=== PATIENT | male | born 1960 | race Caucasian/White ===

== ENCOUNTER 2023-10-25 11:15 | Outpatient (RCR) | payer MEDICAID, SELFPAY | END 2023-12-06 09:48 | disposition home or self-care (01) | PROVIDERS: PCP Family Medicine; Visit Provider Family Medicine | DX: M54.2 Cervicalgia (principal); G89.29 Other chronic pain; Z51.89 Encounter for other specified aftercare | CPT/HCPCS: 97110; 97140; 97161 ==

== ENCOUNTER 2024-10-18 06:46 | Day surgery (SDC) | payer MEDICAID, SELFPAY ==
[2024-10-18] VITALS (14 sets, daily range): BP systolic 116–151; BP diastolic 65–87; PULSE 57–97; RESP 14–18; TEMP 36.3–36.8; O2SAT 92–98; BMI 30.7
--- NOTE | 2024-10-18 07:26 | P.ANES_ITS ---
Documented by User: Mg Wright MD 10/18/24 11:05 Anesthesia Charges Start Date/Time Anesthesia Start Date: 10/18/24 Stop Date/Time Anesthesia Stop Date: 10/18/24 Anesthesia Stop Time: 10:55 Coding CPT Codes CPT Codes: ANESTH SURG LOWER ABDOMEN - 25181 ([id number]) P2 - PATIENT W/MILD SYST DISEASE, QK - SUPERVISOR SPECIAL EFFECTS 2-4 CNCRNT ANES PROC, QX - ASSEMBLING INSPECTOR SVC W/ MED DIRECTION Documented by User: Blaise Wright APRN, ASSEMBLING INSPECTOR 10/18/24 10:57 Anesthesia Charges Start Date/Time Anesthesia Start Time: 08:01 Coding CPT Codes CPT Codes: ANESTH SURG LOWER ABDOMEN - 43872 ([id number]) P2 - PATIENT W/MILD SYST DISEASE, QK - SUPERVISOR SPECIAL EFFECTS 2-4 CNCRNT ANES PROC, QX - ASSEMBLING INSPECTOR MAGO W/ MED DIRECTION
--- NOTE | 2024-10-18 07:26 | W.ANESCHARGE ---
Documented by User: Mg Wright MD 10/18/24 11:05 Anesthesia Charges Start Date/Time Anesthesia Start Date: 10/18/24 Stop Date/Time Anesthesia Stop Date: 10/18/24 Anesthesia Stop Time: 10:55 Coding CPT Codes CPT Codes: ANESTH SURG LOWER ABDOMEN - 37885 ([id number]) P2 - PATIENT W/MILD SYST DISEASE, QK - FIELD SUPPORT TECHNICIAN 2-4 CNCRNT ANES PROC, QX - SOCIAL MEDIA CONTENT MANAGER SVC W/ MED DIRECTION Documented by User: Blaise Wright APRN, SOCIAL MEDIA CONTENT MANAGER 10/18/24 10:57 Anesthesia Charges Start Date/Time Anesthesia Start Time: 08:01 Coding CPT Codes CPT Codes: ANESTH SURG LOWER ABDOMEN - 77431 ([id number]) P2 - PATIENT W/MILD SYST DISEASE, QK - FIELD SUPPORT TECHNICIAN 2-4 CNCRNT ANES PROC, QX - SOCIAL MEDIA CONTENT MANAGER MAGO W/ MED DIRECTION
[2024-10-18] MEDS: SODIUM CHLORIDE 0.9 % (FLUSH) 10 ML SYRINGE IVF (07:41)
[2024-10-18] MEDS: LACTATED RINGERS 1000 ML 1,000 ML 100 ML IV ×2 (07:41→10:05)
--- NOTE | 2024-10-18 07:57 | W.PM.H&PU ---
History & Physical Update History & Physical Update H&P Reviewed and patient assessed: No changes noted
[2024-10-18] MEDS: CLINDAMYCIN 900 MG/50 ML-D5W IVPB (08:15)
[2024-10-18] MEDS: BUPIVACAINE 0.25% 30 ML INJECTION (10:39)
--- NOTE | 2024-10-18 10:56 | P.ANES_ITS ---
Anesthesia Charges Start Date/Time Anesthesia Start Date: 10/18/24 Anesthesia Start Time: 08:01 Stop Date/Time Anesthesia Stop Date: 10/18/24 Anesthesia Stop Time: 10:55 Coding CPT Codes CPT Codes: ANESTH SURG LOWER ABDOMEN - 13991 ([id number]) P2 - PATIENT W/MILD SYST DISEASE, QK - FIELD SALES EXECUTIVE 2-4 CNCRNT ANES PROC, QX - CLINICAL FACULTY SVC W/ MD MED DIRECTION
--- NOTE | 2024-10-18 10:56 | W.ANESCHARGE ---
Anesthesia Charges Start Date/Time Anesthesia Start Date: 10/18/24 Anesthesia Start Time: 08:01 Stop Date/Time Anesthesia Stop Date: 10/18/24 Anesthesia Stop Time: 10:55 Coding CPT Codes CPT Codes: ANESTH SURG LOWER ABDOMEN - 84052 ([id number]) P2 - PATIENT W/MILD SYST DISEASE, QK - AIRBRUSH ARTIST 2-4 CNCRNT ANES PROC, QX - THREADER OPERATOR SVC W/ MD MED DIRECTION
--- NOTE | 2024-10-18 10:59 | P.GSOP_ITS ---
Operative Note Date of procedure: 10/18/24 Pre-op diagnosis: Bilateral inguinal hernias Post-op diagnosis: Same Type of Procedure: Laparoscopic bilateral inguinal hernia repair, TEP Indications: Patient is a 64-year-old male with symptomatic bilateral hernias. Please see consultation note for full discussion regarding different treatment options. Risks and benefits of operative intervention were discussed at length with the patient. Risks included but was not limited to: Bleeding, infection, risk of damage to surrounding structures, possible need for additional procedures, possible need to convert to an open operation and postoperative complications such as pneumonia, pulmonary emboli or NM. All questions and concerns were add ressed with the patient agreeing to proceed. Procedure Description: After discussing the risks and benefits of the procedure, the patient signed informed consent.? The operative site was marked and the patient was brought to the operating room and placed on the operating table in supine position.? Care was taken to pad the patient's pressure points.?? The patient was then intubated by anesthesia.?? The operative site was then prepped and draped in the usual sterile fashion.? A time-out was then performed. A curvilinear incision was made below the umbilicus. Dissection was carried down to subcutaneous tissue until the anterior rectus fascia was encountered. This was incised off the midline. The rectus muscles were then retracted exposing the posterior fascia. A space maker port with a dissecting balloon was then introduced. The preperitoneal space was inflated under direct vision. The balloon was then removed and the preperitoneal space insufflated. A 10 mm 30 degree scope was then advanced and the area was surveyed for bleeding. Dissection began on the left side. Grant's ligament and the pubic bone was exposed medially. Following this dissection was carried out laterally. A large direct defect was noted, no indirect defect was seen. The sac was dissected free from the anterior abdominal wall using blunt dissection. Once the sac was completely reduced, the cord structures were dissected circumfrentially and a piece of Parietex mesh for the appropriate side was placed into the abdomen. This was positioned around the cord structures. A Tacker was used to attach the mesh medially at Grant's ligament. A single lateral tack was used to bring together the lateral pieces of the mesh. Care was taken not to injure the epi gastrics or underlying nerves. Attention was turned to the opposite side where a small direct and medium-sized indirect defect was noted. The hernia sac was again taken down from the anterior abdominal wall. The indirect aspect of the defect was taken down from the cord structures, which were then dissected out circumferentially. A piece of Parietex mesh for the appropriate side was placed into the abdomen. This was positioned around the cord structures. A Tacker was used to attach the mesh medially at Grant's ligament. Once this was completed the sac was placed on top of the mesh and the preperitoneal space desufflated under direct vision. The ports were removed. The fascia from the infraumbilical port was closed with 0 Vicryl. The skin incisions were closed with absorbable subcuticular suture. Sterile dressings were then applied. The scrotum was examined to ensure that both testicles were down. Instrument sponge and needle counts were correct at the end of the case. Findings: Left large direct hernia, right small and medium-sized pantaloon hernia Anesthesia: GETA Surgeon: Sarah Diaz MD Estimated blood loss (mL): 5 Condition: stable Disposition: PACU
[2024-10-18] MEDS: ACETAMINOPHEN 325 MG TABLET 650 MG PO (12:00)
[2024-10-18] MEDS: HYDROCODONE-ACETAMIN 5-325 MG 1 TAB PO (12:00)
== END 2024-10-18 13:15 | disposition home or self-care (01) ==
PROVIDERS: PCP Family Medicine; Visit Provider Surgery
PROC: (CPT 49650; principal; 2024-10-18 08:00)
DX: K40.20 Bilateral inguinal hernia, without obstruction or gangrene, not specified as recurrent (principal)
CPT/HCPCS: 49650; 00840; A9270; C1781; J0330; J0665; J0736; J1100; J2405; J2704; J3490; J7120

== ENCOUNTER 2024-11-23 10:00 | Outpatient (RCR) | payer MEDICAID, SELFPAY | END 2025-03-23 23:59 | disposition home or self-care (01) | PROVIDERS: PCP Family Medicine; Visit Provider Orthopaedic Surgery Orthopaedic Surgery of the Spine | DX: M54.12 Radiculopathy, cervical region (principal); Z51.89 Encounter for other specified aftercare | CPT/HCPCS: 97110; 97140; 97162; 97530 ==